=== PATIENT | female | born 1955 | race American Indian/Alaskan Native ===

== ENCOUNTER 2023-09-22 15:20 | Emergency (ER) | payer MEDICARE, OTHER ==
[2023-09-22 15:57] LABS: BASOPHILS ABSOLUTE AUTO 0.04 10^3/uL (0.00-0.50); BASOPHILS PERCENT AUTO 0.3 % (0-1); EOSINOPHILS ABSOLUTE AUTO 0.69 10^3/uL (0.00-1.50); EOSINOPHILS PERCENT AUTO 4.8 % (0-6); HEMATOCRIT 30.3 % (37.0-47.0); HEMOGLOBIN 9.4 g/dL (12.0-16.0); IMMATURE GRAN ABSOLUTE AUTO 0.06 10^3/uL (0.00-0.49); IMMATURE GRAN PERCENT AUTO 0.4 % (0.0-4.9); LYMPHOCYTES ABSOLUTE AUTO 2.45 10^3/uL (0.60-5.00); LYMPHOCYTES PERCENT AUTO 16.9 % (24-44); MEAN CORPUSCULAR HEMOGLOBIN 20.5 pg (27.0-32.0); MONOCYTES ABSOLUTE AUTO 0.97 10^3/uL (0.00-1.50); MONOCYTES PERCENT AUTO 6.7 % (0-10); NEUTROPHILS ABSOLUTE AUTO 10.25 x10^3/uL (1.80-8.00); NEUTROPHILS PERCENT AUTO 70.9 % (41-71); PLATELET COUNT,PLT 610 10^3/uL (150-400); RED BLOOD CELL COUNT 4.59 x10^6/uL (4.00-5.50); WHITE BLOOD CELL COUNT,WBC 14.5 10^3/uL (4.0-11.0)
[2023-09-22 16:13] LABS: ALBUMIN 1.6 g/dL (3.4-5.0); BILIRUBIN TOTAL 0.3 mg/dL (0.0-1.0); CALCIUM 7.6 mg/dL (8.4-10.1); EST CRCL DRUG DOSING (CG) 41.82 mL/min; LACTIC ACID 1.8 mmol/L (0.4-2.0); MAGNESIUM 1.9 mg/dL (1.8-2.4); POTASSIUM,K 3.7 mEq/L (3.5-5.0); PROTEIN TOTAL,TP 7.8 g/dL (6.4-8.2)
[2023-09-22] MEDS: Iopamidol 755 Mg/ML 100 ML Bottle IVPUSH ONE (16:22)
[2023-09-22 16:36] LABS: APPEARANCE,URINE CLEAR (CLEAR); BILIRUBIN,URINE NEGATIVE (NEGATIVE); COLOR,URINE YELLOW (YELLOW); GLUCOSE,URINE NEGATIVE (NEGATIVE); KETONES,URINE NEGATIVE (NEGATIVE); LEUKOCYTE ESTERASE,URINE NEGATIVE (NEGATIVE); NITRITE,URINE NEGATIVE (NEGATIVE); OCCULT BLOOD,URINE NEGATIVE (NEGATIVE); PROTEIN,URINE NEGATIVE (NEGATIVE)
[2023-09-22 16:41] LABS: BACTERIA,URINE NOT SEEN /HPF (NOT SEEN); MUCUS,URINE MANY /HPF (NOT SEEN); RBC,URINE 0-5 /HPF (0-5); SQUAMOUS EPITHELIAL CELLS,UR FEW /HPF (NOT SEEN); WBC,URINE 0-5 /HPF (0-5)
[2023-09-22] MEDS: Piperacillin/Tazobactam 3.375 GM in Sodium Chloride 0.9% 100 ML IV ONE (18:34)
[2023-09-22] MEDS: Sodium Chloride 0.9% 1,000 ML IV ONE (18:34)
[2023-09-22 18:59] VITALS: BP 90/55; PULSE 107
[2023-09-22] MEDS: Vancomycin 1 GM SDV ONE (19:01)
[2023-09-22] MEDS: Sodium Chloride 0.9% 100 ML ONE (19:01)
[2023-09-22] MEDS: Sodium Chloride 0.9% 250 ML ONE (19:01)
[2023-09-22] MEDS: Sodium Chloride 0.9% 1,000 ML ONE (19:03)
== END 2023-09-22 20:40 ==
LOC: CC.ED 15:20
DX: T84.52XA Infection and inflammatory reaction due to internal left hip prosthesis, initial encounter (principal); S73.002A Unspecified subluxation of left hip, initial encounter; I25.2 Old myocardial infarction; Z88.5 Allergy status to narcotic agent
CPT/HCPCS: 36415; 73701-LT; 80053; 81001; 83605; 83735; 84484; 85025; 87040; 87070; 87077; 87205; 96365; 96367; 99284; 99285-25; J2543; J3370; J3490; J7030; J7050; Q9967